=== PATIENT | female | born 1990 | race Two or more races ===

== ENCOUNTER 2023-11-01 00:22 | Emergency (ER) | payer MEDICAID, OTHER ==
[~2023-11-01] VITALS: Ht 157.5 cm; Wt 72.7 kg
[2023-11-01] MEDS ORDERED: PHENSUP38 PR (01:07)
[2023-11-01] MEDS ORDERED: DOCU-94 PO (01:07)
[2023-11-01 01:45] VITALS: BP 104/64; PULSE 68; RESP 16; TEMP 98.1; O2SAT 100
== END 2023-11-01 01:58 | disposition home or self-care (01) ==
LOC: ER 00:22
DX: K64.4 Residual hemorrhoidal skin tags (principal)